=== PATIENT | male | born 1965 | race Caucasian/White ===

== ENCOUNTER 2017-02-04 11:46 | Inpatient (IN) | payer OTHER ==
[2017-02-04 12:23] VITALS: BMI 31.9
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
[2017-02-04] MEDS ORDERED: guaiFENesin/D-METHORPHAN HB 10 ML UNIT-DOSE CUPS PO PRN (15:19)
[2017-02-04] MEDS ORDERED: MAG HYDROX/AL HYDROX/SIMETH 30 ML UNIT-DOSE CUP PO PRN (15:19)
[2017-02-04] MEDS ORDERED: IBUPROFEN 400 MG TABLET (FP) PO PRN (15:19)
[2017-02-04] MEDS ORDERED: METHADONE HCL 10 MG TABLET (FOR DETOX USE ONLY) PO ONE ×2 (15:19→23:00)
[2017-02-04] MEDS ORDERED: diphenhydrAMINE HCL 50 MG CAPSULE PO PRN (15:19)
[2017-02-04] MEDS ORDERED: P-EPHED 60MG/TRIPROLIDI 2.5MG TABLET PO PRN (15:19)
[2017-02-04] MEDS ORDERED: MAGNESIUM HYDROX 2400MG/30ML ORAL SUSPENSION 30 ML CUP PO PRN (15:19)
[2017-02-04] MEDS ORDERED: NICOTINE POLACRILEX 2 MG GUM BC PRN (15:19)
[2017-02-04] MEDS ORDERED: LOPERAMIDE HCL 2 MG CAPSULE PO PRN (15:19)
[2017-02-04] MEDS ORDERED: MENTHOL/PHENOL 1 EACH UD MM PRN (15:19)
[2017-02-04] MEDS ORDERED: MAGNESIUM CITRATE 300 ML BOTTLE PO PRN (15:19)
[2017-02-04] MEDS ORDERED: ALBUTEROL SO4 6.7 GM HFA INHALER IH PRN (15:22)
[2017-02-04] MEDS ORDERED: ARTIFICIAL TEARS (POLYVINYL ALCOHOL 1.4%) OPTH DROPS OU PRN (15:32)
[2017-02-04] MEDS: NICOTINE 21 MG/24 HOURS TOPICAL PATCH TD SCH (16:53)
[2017-02-04] MEDS: diazePAM 5 MG TABLET PO PRN ×2 (16:54→22:14)
[2017-02-04] MEDS: CEPHALEXIN MONOHYDRATE 500 MG CAPSULE (UD) PO SCH ×2 (17:00→22:15)
[2017-02-04 19:34] LABS: URINE APPEARANCE CLEAR; URINE BILIRUBIN NEGATIVE (NEGATIVE); URINE BLOOD NEGATIVE (NEGATIVE); URINE COLOR LTYELLOW; URINE GLUCOSE (UA) NEGATIVE (NEGATIVE); URINE KETONE NEGATIVE (NEGATIVE); URINE LEUK ESTERASE NEGATIVE (NEGATIVE); URINE NITRITE NEGATIVE (NEGATIVE); URINE PROTEIN NEGATIVE (NEGATIVE); URINE UROBILINOGEN NEGATIVE E.U./dl (0.2-1.0)
[2017-02-04] MEDS ORDERED: BACITRACIN 30 GM TUBE TOPICAL OINTMENT TP SCH (22:00)
[2017-02-04] MEDS: THIAMINE HCL 100 MG TABLET (FP) PO SCH (22:14)
[2017-02-04] MEDS: BACITRACIN 0.9 GM PACKET TP SCH (22:14)
[2017-02-04] MEDS: RANITIDINE HCL 150 MG TABLET (FP) PO SCH (22:15)
[2017-02-05] MEDS: diazePAM 5 MG TABLET PO PRN ×4 (05:26→22:09)
[2017-02-05] MEDS ORDERED: METHADONE HCL 10 MG TABLET (FOR DETOX USE ONLY) PO ONE (10:00)
[2017-02-05 10:05] LABS: MCH 30.5 pg (25.7-33.7); MEAN CELL VOLUME 92.4 fl (80-96); MEAN PLT VOLUME 8.3 fl (7.5-11.1); PLATELET COUNT 220 K/MM3 (134-434); RDW 13.5 % (11.9-15.9); WHITE BLOOD COUNT 4.4 K/mm3 (4.0-10.0)
[2017-02-05] MEDS: BACITRACIN 0.9 GM PACKET TP SCH ×2 (10:06→22:09)
[2017-02-05] MEDS: CEPHALEXIN MONOHYDRATE 500 MG CAPSULE (UD) PO SCH ×4 (10:06→22:09)
[2017-02-05] MEDS: PRENATAL VITAMINS W/ FOLIC ACID TABLET (FP) PO SCH (10:06)
[2017-02-05] MEDS: RANITIDINE HCL 150 MG TABLET (FP) PO SCH ×2 (10:07→22:09)
[2017-02-05] MEDS: NICOTINE 21 MG/24 HOURS TOPICAL PATCH TD SCH (10:07)
[2017-02-05 10:22] LABS: BILIRUBIN,TOTAL 0.3 mg/dL (0.2-1.0); SGOT/AST 39 U/L (15-37); SGPT/ALT 48 U/L (12-78)
[2017-02-05 10:25] LABS: ALK PHOS 105 U/L (45-117); ANION GAP 9 (8-16); CALCIUM 8.6 mg/dL (8.5-10.1); CO2 29 mmol/L (21-32); COCKROFT - GAULT 185.02; CREATININE 0.6 mg/dL (0.7-1.3); GLUCOSE,RANDOM 151 mg/dL (74-106); TOT PROT 6.6 g/dl (6.4-8.2)
[2017-02-05 10:52] LABS: HIV 1 & 2 AB NEGATIVE; HIV 1 AGp24 NEGATIVE
--- NOTE | 2017-02-05 11:11 | EKG ---
Test Reason : Blood Pressure : / mmHG Vent. Rate : 056 BPM Atrial Rate : 056 BPM P-R Int : 126 ms QRS Dur : 078 ms QT Int : 464 ms P-R-T Axes : 045 022 022 degrees QTc Int : 447 ms SINUS BRADYCARDIA WITH SINUS ARRHYTHMIA OTHERWISE NORMAL ECG NO PREVIOUS ECGS AVAILABLE Confirmed by NOAH DUFFY MD ([id number]) on 02/05/2017 11:11:14 AM Referred By: Confirmed By:NOAH DUFFY MD
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
--- NOTE | 2017-02-05 15:52 | PN ---
BHS COWS - Scale Resting Pulse: 1= RI 81-100 Sweatin=Flushed/Facial Moisture Restless Observation: 1= Difficult to Sit Still Pupil Size: 0= Normal to Room Light Bone or Joint Aches: 2= Severe Diffuse Aches Runny Nose/ Eye Tearin= Runny Nose/Eyes GI Upset > 30mins: 2= Nausea/Diarrhea Tremor Observation of Outstretched Hands: 2= Slight Tremor Visible Yawning Observation: 1= 1-2x During Session Anxiety or Irritability: 2=Irritable/Anxious Goose Flesh Skin: 0=Smooth Skin COWS Score: 15 BHS Progress Note (SOAP) Subjective: Anxiety,tremors,sweating,interrupted sleep,restless,muscle aches Objective: 02/05/17 15:50 Vital Signs - 8 hr 02/05/17 09:23 Temperature Pulse Rate 86 Respiratory 18 Rate Blood Pressure 105/78 Laboratory Tests 02/04/17 02/05/17 02/05/17 16:23 07:00 07:00 WBC 4.4 RBC 4.42 Hgb 13.5 D Hct 40.9 MCV 92.4 MCHC 33.0 RDW 13.5 Plt Count 220 D MPV 8.3 D Sodium Potassium Chloride Carbon Dioxide Anion Gap BUN Creatinine Creat Clearance w eGFR Random Glucose Calcium Total Bilirubin AST ALT Alkaline Phosphatase Total Protein Albumin Urine Color Ltyellow Urine Appearance Clear Urine pH 5.0 Ur Specific [place] 1.006 Urine Protein Negative Urine Glucose (UA) Negative Urine Ketones Negative Urine Blood Negative Urine Nitrite Negative Urine Bilirubin Negative Urine Urobilinogen Negative Ur Leukocyte Esterase Negative RPR Titer HIV 1&2 Antibody Screen Negative HIV P24 Antigen Negative 02/05/17 02/05/17 07:00 07:00 WBC RBC Hgb Hct MCV MCHC RDW Plt Count MPV Sodium 139 Potassium 4.0 Chloride 101 Carbon Dioxide 29 Anion Gap 9 BUN 9 D Creatinine 0.6 L Creat Clearance w eGFR > 60 Random Glucose 151 H D Calcium 8.6 Total Bilirubin 0.3 D AST 39 H ALT 48 Alkaline Phosphatase 105 D Total Protein 6.6 Albumin 3.0 L Urine Color Urine Appearance Urine pH Ur Specific [place] Urine Protein Urine Glucose (UA) Urine Ketones Urine Blood Urine Nitrite Urine Bilirubin Urine Urobilinogen Ur Leukocyte Esterase RPR Titer Nonreactive HIV 1&2 Antibody Screen HIV P24 Antigen labs noted Assessment: 02/05/17 15:51 Withdrawal sx. Plan: Continue detox
[2017-02-05] MEDS: THIAMINE HCL 100 MG TABLET (FP) PO SCH (22:09)
[2017-02-06] MEDS: diazePAM 5 MG TABLET PO PRN ×4 (05:46→22:05)
--- NOTE | 2017-02-06 09:40 | PN ---
BHS COWS - Scale Resting Pulse: 1= [place] 81-100 Sweatin=Flushed/Facial Moisture Restless Observation: 1= Difficult to Sit Still Pupil Size: 0= Normal to Room Light Bone or Joint Aches: 2= Severe Diffuse Aches Runny Nose/ Eye Tearin= Runny Nose/Eyes GI Upset > 30mins: 2= Nausea/Diarrhea Tremor Observation of Outstretched Hands: 2= Slight Tremor Visible Yawning Observation: 1= 1-2x During Session Anxiety or Irritability: 2=Irritable/Anxious Goose Flesh Skin: 0=Smooth Skin COWS Score: 15 BHS Progress Note (SOAP) Subjective: Anxiety,tremors,sweating,interrupted sleep,restless,body aches Objective: 02/06/17 09:39 Last Vital Signs Temp Pulse Resp BP Pulse Ox 98.1 F 92 H 19 118/83 02/06/17 09:22 02/06/17 09:22 02/06/17 09:22 02/06/17 09:22 Laboratory Tests 02/04/17 02/05/17 02/05/17 16:23 07:00 07:00 WBC 4.4 RBC 4.42 Hgb 13.5 D Hct 40.9 MCV 92.4 MCHC 33.0 RDW 13.5 Plt Count 220 D MPV 8.3 D Sodium Potassium Chloride Carbon Dioxide Anion Gap BUN Creatinine Creat Clearance w eGFR Random Glucose Calcium Total Bilirubin AST ALT Alkaline Phosphatase Total Protein Albumin Urine Color Ltyellow Urine Appearance Clear Urine pH 5.0 Ur Specific [place] 1.006 Urine Protein Negative Urine Glucose (UA) Negative Urine Ketones Negative Urine Blood Negative Urine Nitrite Negative Urine Bilirubin Negative Urine Urobilinogen Negative Ur Leukocyte Esterase Negative RPR Titer HIV 1&2 Antibody Screen Negative HIV P24 Antigen Negative 02/05/17 02/05/17 07:00 07:00 WBC RBC Hgb Hct MCV MCHC RDW Plt Count MPV Sodium 139 Potassium 4.0 Chloride 101 Carbon Dioxide 29 Anion Gap 9 BUN 9 D Creatinine 0.6 L Creat Clearance w eGFR > 60 Random Glucose 151 H D Calcium 8.6 Total Bilirubin 0.3 D AST 39 H ALT 48 Alkaline Phosphatase 105 D Total Protein 6.6 Albumin 3.0 L Urine Color Urine Appearance Urine pH Ur Specific [place] Urine Protein Urine Glucose (UA) Urine Ketones Urine Blood Urine Nitrite Urine Bilirubin Urine Urobilinogen Ur Leukocyte Esterase RPR Titer Nonreactive HIV 1&2 Antibody Screen HIV P24 Antigen labs noted Assessment: 02/06/17 09:40 Withdrawal sx. Plan: Continue detox
[2017-02-06] MEDS ORDERED: METHADONE HCL 5 MG TABLET (FOR DETOX USE ONLY) PO ONE (10:00)
[2017-02-06] MEDS: PRENATAL VITAMINS W/ FOLIC ACID TABLET (FP) PO SCH (10:07)
[2017-02-06] MEDS: RANITIDINE HCL 150 MG TABLET (FP) PO SCH ×2 (10:07→22:05)
[2017-02-06] MEDS: CEPHALEXIN MONOHYDRATE 500 MG CAPSULE (UD) PO SCH ×4 (10:07→22:05)
[2017-02-06] MEDS: NICOTINE 21 MG/24 HOURS TOPICAL PATCH TD SCH (10:08)
[2017-02-06] MEDS: BACITRACIN 0.9 GM PACKET TP SCH ×2 (10:11→22:05)
[2017-02-06] MEDS: THIAMINE HCL 100 MG TABLET (FP) PO SCH (22:05)
[2017-02-07] MEDS: diazePAM 5 MG TABLET PO PRN ×2 (06:06→10:09)
[2017-02-07] MEDS ORDERED: METHADONE HCL 5 MG TABLET (FOR DETOX USE ONLY) PO ONE (10:00)
[2017-02-07] MEDS: BACITRACIN 0.9 GM PACKET TP SCH ×2 (10:04→22:08)
[2017-02-07] MEDS: CEPHALEXIN MONOHYDRATE 500 MG CAPSULE (UD) PO SCH ×4 (10:04→22:08)
[2017-02-07] MEDS: PRENATAL VITAMINS W/ FOLIC ACID TABLET (FP) PO SCH (10:04)
[2017-02-07] MEDS: RANITIDINE HCL 150 MG TABLET (FP) PO SCH ×2 (10:04→22:08)
[2017-02-07] MEDS: NICOTINE 21 MG/24 HOURS TOPICAL PATCH TD SCH (10:05)
--- NOTE | 2017-02-07 12:56 | PN ---
BHS Progress Note (SOAP) Subjective: Lower Back Ache, Sweating, Diarrhea, Vomit (X 1 last ear;y this AM). Objective: PT. A & O X 3, OBSERVED AMBULATING ON UNIT. 02/07/17 12:55 Vital Signs Temperature 98.1 F 02/07/17 09:47 Pulse Rate 79 02/07/17 09:47 Respiratory Rate 18 02/07/17 09:47 Blood Pressure 116/89 02/07/17 09:47 O2 Sat by Pulse Oximetry (%) Laboratory Last Values WBC 4.4 K/mm3 (4.0-10.0) 02/05/17 07:00 RBC 4.42 M/mm3 (4.00-5.60) 02/05/17 07:00 Hgb 13.5 GM/dL (11.7-16.9) D 02/05/17 07:00 Hct 40.9 % (35.4-49) 02/05/17 07:00 MCV 92.4 fl (80-96) 02/05/17 07:00 MCHC 33.0 g/dl (32.0-35.9) 02/05/17 07:00 RDW 13.5 % (11.9-15.9) 02/05/17 07:00 Plt Count 220 K/MM3 (134-434) D 02/05/17 07:00 MPV 8.3 fl (7.5-11.1) D 02/05/17 07:00 Sodium 139 mmol/L (136-145) 02/05/17 07:00 Potassium 4.0 mmol/L (3.5-5.1) 02/05/17 07:00 Chloride 101 mmol/L (98-107) 02/05/17 07:00 Carbon Dioxide 29 mmol/L (21-32) 02/05/17 07:00 Anion Gap 9 (8-16) 02/05/17 07:00 BUN 9 mg/dL (7-18) D 02/05/17 07:00 Creatinine 0.6 mg/dL (0.7-1.3) L 02/05/17 07:00 Creat Clearance w eGFR > 60 (>60) 02/05/17 07:00 Random Glucose 151 mg/dL (74-106) H D 02/05/17 07:00 Calcium 8.6 mg/dL (8.5-10.1) 02/05/17 07:00 Total Bilirubin 0.3 mg/dL (0.2-1.0) D 02/05/17 07:00 AST 39 U/L (15-37) H 02/05/17 07:00 ALT 48 U/L (12-78) 02/05/17 07:00 Alkaline Phosphatase 105 U/L (45-117) D 02/05/17 07:00 Total Protein 6.6 g/dl (6.4-8.2) 02/05/17 07:00 Albumin 3.0 g/dl (3.4-5.0) L 02/05/17 07:00 Urine Color Ltyellow 02/04/17 16:23 Urine Appearance Clear 02/04/17 16:23 Urine pH 5.0 (5.0-8.0) 02/04/17 16:23 Ur Specific [place] 1.006 (1.001-1.035) 02/04/17 16:23 Urine Protein Negative (NEGATIVE) 02/04/17 16:23 Urine Glucose (UA) Negative (NEGATIVE) 02/04/17 16:23 Urine Ketones Negative (NEGATIVE) 02/04/17 16:23 Urine Blood Negative (NEGATIVE) 02/04/17 16:23 Urine Nitrite Negative (NEGATIVE) 02/04/17 16:23 Urine Bilirubin Negative (NEGATIVE) 02/04/17 16:23 Urine Urobilinogen Negative E.U./dl (0.2-1.0) 02/04/17 16:23 Ur Leukocyte Esterase Negative (NEGATIVE) 02/04/17 16:23 RPR Titer Nonreactive (NONREACTIVE) 02/05/17 07:00 HIV 1&2 Antibody Screen Negative 02/05/17 07:00 HIV P24 Antigen Negative 02/05/17 07:00 LABS NOTED. 02/07/17 12:56 Assessment: 02/07/17 12:56 WITHDRAWAL SYMPTOMS. Plan: CONTINUE DETOX. ADVISED PATIENT TO FOLLOW-UP WITH ELECTROCARDIOGRAPH REPAIRER / REHAB MEDICAL PROVIDER AFTER DISCHARGE FROM DETOX FOR GENERAL MEDICAL ASSESSMENT AND FOR ABNORMAL ADMISSION LAB VALUES.
[2017-02-07] MEDS: LIDOCAINE 5% TOPICAL PATCH TP SCH (13:39)
[2017-02-07] MEDS: hydrOXYzine PAMOATE 50 MG CAPSULE (FP) PO PRN (17:07)
[2017-02-07] MEDS: THIAMINE HCL 100 MG TABLET (FP) PO SCH (22:08)
[2017-02-08] MEDS: hydrOXYzine PAMOATE 50 MG CAPSULE (FP) PO PRN (05:45)
[2017-02-08 09:14] VITALS: BP 117/72; PULSE 94; TEMP 97.9
[2017-02-08] MEDS: LIDOCAINE 5% TOPICAL PATCH TP SCH (09:24)
[2017-02-08] MEDS: CEPHALEXIN MONOHYDRATE 500 MG CAPSULE (UD) PO SCH (09:24)
[2017-02-08] MEDS: RANITIDINE HCL 150 MG TABLET (FP) PO SCH (09:26)
[2017-02-08] MEDS: NICOTINE 21 MG/24 HOURS TOPICAL PATCH TD SCH (09:26)
[2017-02-08] MEDS: PRENATAL VITAMINS W/ FOLIC ACID TABLET (FP) PO SCH (09:26)
[2017-02-08] MEDS: BACITRACIN 0.9 GM PACKET TP SCH (09:27)
[2017-02-08] MEDS ORDERED: METHADONE HCL 10 MG TABLET (FOR DETOX USE ONLY) PO ONE (10:00)
--- NOTE | 2017-02-08 15:18 | DS ---
[facility] Detox Discharge Summary Admission Date: 02/04/17 Discharge Date: 02/08/17 - History Present History: Opioid Dependence Pertinent Past History: Asthma HEP C GERD Hypercholesterolemia - Physical Exam Results Vital Signs: Vital Signs Temperature 97.9 F 02/08/17 09:13 Pulse Rate 94 H 02/08/17 09:13 Respiratory Rate 20 02/08/17 09:13 Blood Pressure 117/72 02/08/17 09:13 O2 Sat by Pulse Oximetry (%) Pertinent Admission Physical Exam Findings: Withdrawal sx. Laboratory Last Values WBC 4.4 K/mm3 (4.0-10.0) 02/05/17 07:00 RBC 4.42 M/mm3 (4.00-5.60) 02/05/17 07:00 Hgb 13.5 GM/dL (11.7-16.9) D 02/05/17 07:00 Hct 40.9 % (35.4-49) 02/05/17 07:00 MCV 92.4 fl (80-96) 02/05/17 07:00 MCHC 33.0 g/dl (32.0-35.9) 02/05/17 07:00 RDW 13.5 % (11.9-15.9) 02/05/17 07:00 Plt Count 220 K/MM3 (134-434) D 02/05/17 07:00 MPV 8.3 fl (7.5-11.1) D 02/05/17 07:00 Sodium 139 mmol/L (136-145) 02/05/17 07:00 Potassium 4.0 mmol/L (3.5-5.1) 02/05/17 07:00 Chloride 101 mmol/L (98-107) 02/05/17 07:00 Carbon Dioxide 29 mmol/L (21-32) 02/05/17 07:00 Anion Gap 9 (8-16) 02/05/17 07:00 BUN 9 mg/dL (7-18) D 02/05/17 07:00 Creatinine 0.6 mg/dL (0.7-1.3) L 02/05/17 07:00 Creat Clearance w eGFR > 60 (>60) 02/05/17 07:00 Random Glucose 151 mg/dL (74-106) H D 02/05/17 07:00 Calcium 8.6 mg/dL (8.5-10.1) 02/05/17 07:00 Total Bilirubin 0.3 mg/dL (0.2-1.0) D 02/05/17 07:00 AST 39 U/L (15-37) H 02/05/17 07:00 ALT 48 U/L (12-78) 02/05/17 07:00 Alkaline Phosphatase 105 U/L (45-117) D 02/05/17 07:00 Total Protein 6.6 g/dl (6.4-8.2) 02/05/17 07:00 Albumin 3.0 g/dl (3.4-5.0) L 02/05/17 07:00 Urine Color Ltyellow 02/04/17 16:23 Urine Appearance Clear 02/04/17 16:23 Urine pH 5.0 (5.0-8.0) 02/04/17 16:23 Ur Specific [place] 1.006 (1.001-1.035) 02/04/17 16:23 Urine Protein Negative (NEGATIVE) 02/04/17 16:23 Urine Glucose (UA) Negative (NEGATIVE) 02/04/17 16:23 Urine Ketones Negative (NEGATIVE) 02/04/17 16:23 Urine Blood Negative (NEGATIVE) 02/04/17 16:23 Urine Nitrite Negative (NEGATIVE) 02/04/17 16:23 Urine Bilirubin Negative (NEGATIVE) 02/04/17 16:23 Urine Urobilinogen Negative E.U./dl (0.2-1.0) 02/04/17 16:23 Ur Leukocyte Esterase Negative (NEGATIVE) 02/04/17 16:23 RPR Titer Nonreactive (NONREACTIVE) 02/05/17 07:00 HIV 1&2 Antibody Screen Negative 02/05/17 07:00 HIV P24 Antigen Negative 02/05/17 07:00 labs noted - Treatment Patient has Accepted a Rehab Referral to: [facility] & 12 step meetings - Medication Discharge Medications: Ambulatory Orders Albuterol Sulfate Inhaler - [Ventolin Hfa *Inhaler*] 2 inh IH Q4H PRN 04/01/13 Ranitidine [Zantac] 150 mg PO BID 04/01/13 Salmeterol/Fluticasone [Advair 250Mcg/50Mcg] 1 inh PO BID 04/01/13 Clotrimazole [Lotrimin 1% Solution -] 1 applic TP BID 02/04/17 Hydrocortisone 1% Cream [Hytone 1% Cream -] 1 applic TP BID 02/04/17 - Diagnosis (1) Nicotine dependence Status: Acute Qualifiers: Nicotine product type: cigarettes Substance use status: uncomplicated Qualified Code(s): F17.210 - Nicotine dependence, cigarettes, uncomplicated (2) Opioid dependence with withdrawal Status: Acute (3) Asthma Status: Chronic Qualifiers: Asthma severity: mild intermittent Asthma complication type: uncomplicated Qualified Code(s): J45.20 - Mild intermittent asthma, uncomplicated (4) Chronic hepatitis C Status: Chronic Qualifiers: Hepatic coma status: without hepatic coma Qualified Code(s): B18.2 - Chronic viral hepatitis C (5) GERD (gastroesophageal reflux disease) Status: Chronic Qualifiers: Esophagitis presence: without esophagitis Qualified Code(s): K21.9 - Gastro-esophageal reflux disease without esophagitis (6) Hypercholesterolemia Status: Chronic - AMA Did Patient Leave Against Medical Advice: Yes
[2017-02-09] MEDS ORDERED: METHADONE HCL 5 MG TABLET (FOR DETOX USE ONLY) PO ONE (06:00)
== END 2017-02-08 09:53 | disposition left against medical advice (07) | DRG 770 ==
LOC: YASAS 11:46 → Y3N 15:48
PROVIDERS: ADMIT Internal Medicine; ATTEND Internal Medicine
PROC: HZ2ZZZZ Detoxification Services for Substance Abuse Treatment (ICD-10-PCS; principal; 2017-02-04)
DX: F11.23 Opioid dependence with withdrawal (principal); F17.210 Nicotine dependence, cigarettes, uncomplicated; J45.20 Mild intermittent asthma, uncomplicated; B18.2 Chronic viral hepatitis C; K21.9 Gastro-esophageal reflux disease without esophagitis; E78.00 Pure hypercholesterolemia, unspecified
CPT/HCPCS: 36415; 80053; 81003; 85027; 86593; 87389; 93005; 93010

== ENCOUNTER 2017-04-29 11:57 | Inpatient (IN) | payer OTHER ==
[2017-04-29 13:15] VITALS: BMI 32.5
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
[2017-04-29] MEDS ORDERED: P-EPHED 60MG/TRIPROLIDI 2.5MG TABLET PO PRN (13:53)
[2017-04-29] MEDS ORDERED: diazePAM 5 MG TABLET PO ONE (13:53)
[2017-04-29] MEDS ORDERED: ACETAMINOPHEN 325 MG TABLET (FP) PO PRN (13:53)
[2017-04-29] MEDS ORDERED: guaiFENesin/D-METHORPHAN HB 10 ML UNIT-DOSE CUPS PO PRN (13:53)
[2017-04-29] MEDS ORDERED: LOPERAMIDE HCL 2 MG CAPSULE PO PRN (13:53)
[2017-04-29] MEDS ORDERED: MENTHOL/PHENOL 1 EACH UD MM PRN (13:53)
[2017-04-29] MEDS ORDERED: METHADONE HCL 10 MG TABLET (FOR DETOX USE ONLY) PO ONE ×2 (13:53→23:00)
[2017-04-29] MEDS ORDERED: MAGNESIUM HYDROX 2400MG/30ML ORAL SUSPENSION 30 ML CUP PO PRN (13:53)
[2017-04-29] MEDS ORDERED: MAG HYDROX/AL HYDROX/SIMETH 30 ML UNIT-DOSE CUP PO PRN (13:53)
[2017-04-29] MEDS ORDERED: hydrOXYzine PAMOATE 50 MG CAPSULE (FP) PO PRN (13:53)
[2017-04-29] MEDS ORDERED: IBUPROFEN 400 MG TABLET (FP) PO PRN (13:53)
[2017-04-29] MEDS ORDERED: diphenhydrAMINE HCL 50 MG CAPSULE PO PRN (13:53)
[2017-04-29] MEDS ORDERED: MAGNESIUM CITRATE 300 ML BOTTLE PO PRN (13:53)
[2017-04-29] MEDS ORDERED: CYCLOBENZAPRINE HCL 10 MG TABLET (FP) PO PRN (13:56)
[2017-04-29] MEDS ORDERED: ALBUTEROL SO4 6.7 GM HFA INHALER IH PRN (13:58)
[2017-04-29] MEDS: diazePAM 5 MG TABLET PO SCH ×2 (14:33→22:17)
[2017-04-29] MEDS: NICOTINE 21 MG/24 HOURS TOPICAL PATCH TD SCH (14:35)
[2017-04-29 15:57] LABS: URINE APPEARANCE CLEAR; URINE BILIRUBIN NEGATIVE (NEGATIVE); URINE BLOOD NEGATIVE (NEGATIVE); URINE COLOR DKYELLOW; URINE GLUCOSE (UA) NEGATIVE (NEGATIVE); URINE KETONE NEGATIVE (NEGATIVE); URINE LEUK ESTERASE NEGATIVE (NEGATIVE); URINE NITRITE NEGATIVE (NEGATIVE); URINE PROTEIN NEGATIVE (NEGATIVE)
[2017-04-29] MEDS: diazePAM 5 MG TABLET PO PRN (20:13)
[2017-04-29] MEDS ORDERED: THIAMINE HCL 100 MG TABLET (FP) PO SCH (22:00)
[2017-04-29] MEDS: cloNIDine HCL 0.1 MG TABLET PO SCH (22:17)
[2017-04-29] MEDS: RANITIDINE HCL 150 MG TABLET (FP) PO SCH (22:17)
[2017-04-29] MEDS: SULFAMETHOXAZOLE/TRIMETHOPRIM 800MG/160MG D.S. TABLET PO SCH (22:18)
[2017-04-29] MEDS: BUDESONIDE/FORMETEROL FUMARATE 80/4.5 mcg INHALER IH SCH (22:18)
[2017-04-30] MEDS: diazePAM 5 MG TABLET PO SCH (05:16)
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
[2017-04-30 09:53] VITALS: BP 113/80; PULSE 63; TEMP 97
[2017-04-30] MEDS ORDERED: PRENATAL VITAMINS W/ FOLIC ACID TABLET (FP) PO SCH (10:00)
[2017-04-30] MEDS ORDERED: METHADONE HCL 10 MG TABLET (FOR DETOX USE ONLY) PO SCH (10:00)
[2017-04-30] MEDS: BUDESONIDE/FORMETEROL FUMARATE 80/4.5 mcg INHALER IH SCH (10:23)
[2017-04-30] MEDS: diazePAM 5 MG TABLET PO PRN (10:24)
[2017-04-30] MEDS: SULFAMETHOXAZOLE/TRIMETHOPRIM 800MG/160MG D.S. TABLET PO SCH (10:24)
[2017-04-30] MEDS: RANITIDINE HCL 150 MG TABLET (FP) PO SCH (10:24)
[2017-04-30] MEDS: cloNIDine HCL 0.1 MG TABLET PO SCH (10:24)
[2017-04-30] MEDS: NICOTINE 21 MG/24 HOURS TOPICAL PATCH TD SCH (10:26)
--- NOTE | 2017-04-30 12:47 | EKG ---
Test Reason : Blood Pressure : / mmHG Vent. Rate : 062 BPM Atrial Rate : 062 BPM P-R Int : 130 ms QRS Dur : 076 ms QT Int : 424 ms P-R-T Axes : 031 010 010 degrees QTc Int : 430 ms NORMAL SINUS RHYTHM NORMAL ECG WHEN COMPARED WITH ECG OF 04-FEB-2017 16:04, NO SIGNIFICANT CHANGE WAS FOUND Confirmed by ABHILASH FRANKLIN MD ([id number]) on 04/30/2017 12:47:04 PM Referred By: Confirmed By:ABHILASH FRANKLIN MD
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
[2017-05-01] MEDS ORDERED: METHADONE HCL 5 MG TABLET (FOR DETOX USE ONLY) PO SCH (10:00)
[2017-05-01] MEDS ORDERED: diazePAM 5 MG TABLET PO SCH (10:00)
[2017-05-03] MEDS ORDERED: diazePAM 5 MG TABLET PO SCH (10:00)
[2017-05-03] MEDS ORDERED: METHADONE HCL 10 MG TABLET (FOR DETOX USE ONLY) PO SCH (10:00)
[2017-05-04] MEDS ORDERED: METHADONE HCL 5 MG TABLET (FOR DETOX USE ONLY) PO SCH (06:00)
== END 2017-04-30 11:07 | disposition left against medical advice (07) | DRG 770 ==
LOC: YASAS 11:57 → Y3N 13:52
PROVIDERS: ADMIT Internal Medicine; ATTEND Internal Medicine
PROC: HZ2ZZZZ Detoxification Services for Substance Abuse Treatment (ICD-10-PCS; principal; 2017-04-30)
DX: F11.23 Opioid dependence with withdrawal (principal); F13.230 Sedative, hypnotic or anxiolytic dependence with withdrawal, uncomplicated; F10.230 Alcohol dependence with withdrawal, uncomplicated; F19.24 Other psychoactive substance dependence with psychoactive substance-induced mood disorder; F17.210 Nicotine dependence, cigarettes, uncomplicated; B18.2 Chronic viral hepatitis C; K21.9 Gastro-esophageal reflux disease without esophagitis; E78.00 Pure hypercholesterolemia, unspecified; J45.20 Mild intermittent asthma, uncomplicated; L03.115 Cellulitis of right lower limb; L03.116 Cellulitis of left lower limb
CPT/HCPCS: 81003; 93005; 93010

== ENCOUNTER 2019-04-02 11:54 | Inpatient (IN) | payer OTHER | END 2019-04-03 11:49 | disposition left against medical advice (07) | LOC: YASAS 11:54 → Y6N 18:20 ==